=== PATIENT | female | born 1980 | race Caucasian/White ===

== ENCOUNTER 2019-02-02 09:08 | Emergency (ER) | payer OTHER ==
--- OUTSIDE RECORDS SUMMARY | 2019-02-02 09:10 | XMS REPORT | Summary of Care ---
:1980 Author Organization [facility] [[email or web address] - [facility] Address [address] [place] [id number] Care Team Providers Name Role Phone Faculty, Marco Jessica m Unavailable Unavailable Seda Mann Primary Care Provider Reason for Visit Reason Comments Shingles Auth/Cert Status Reason Specialty Diagnoses / Referred By Referred To Procedures Contact Contact Emergency Medicine Diagnoses [facility]ING[facility] Emergency Dept [address] [place] [address] Encounter Details Date Type Department Care Team Description 10/23/2018 Emergency ADC-Emergency Bar Christine MD Herpes zoster without Department [address] [place] [address] complication (Primary [address] Dx) [place] [address] [place], [place] [id number] Allergies No Known Allergiesdocumented as of this encounter (statuses as of 10/23/2018) Medications Medication Sig Dispensed Refills Start Date End Date Status HYDROcodone-acetaminop Take 1 tablet 0 Active hen (NORCO) 10-325 mg by mouth 2 tablet (two) times daily. HYDROcodone-acetaminop Take 1 tablet 30 tablet 0 07/08/2016 Active hen 10-325 mg tablet by mouth every 6 (six) hours as needed for Pain (scale 7-10). HYDROcodone-acetaminop Take 1 tablet 40 tablet 0 07/18/2016 Active hen 5-325 mg tablet by mouth every 4 (four) hours as needed for Pain (scale 4-6). cyclobenzaprine 5 mg Take 1 tablet 30 tablet 0 10/28/2016 Active tablet by mouth 3 (three) times daily. traMADOL (ULTRAM) 50 Take 1 tablet 20 tablet 0 10/28/2016 Active mg tablet by mouth every 6 (six) hours as needed for Pain (scale 4-6). traMADOL (ULTRAM) 50 Take 1 tablet 20 tablet 0 10/28/2016 Active mg tablet by mouth every 6 (six) hours as needed for Pain (scale 4-6). cyclobenzaprine 5 mg Take 1 tablet 30 tablet 0 10/28/2016 Active tablet by mouth 3 (three) times daily. gabapentin 300 mg Take 1,200 mg 0 Active capsule by mouth 3 (three) times daily. traZODONE 100 mg Take 100 mg by 0 Active tablet mouth at bedtime. acyclovir 200 mg Take 4 capsules 140 capsule 0 10/23/2018 Active capsuleIndications: by mouth 5 Herpes zoster without (five) times complication daily. predniSONE 20 mg Take 3 tablets 15 tablet 0 10/23/2018 10/28/2018 Active tabletIndications: by mouth every Herpes zoster without morning for 5 complication days. documented as of this encounter (statuses as of 10/23/2018) Active Problems Problem Noted Date Wound dehiscence, 07/13/2016 Overview: Fascial dehiscence Bowel obstruction 07/12/2016 Incisional hernia with obstruction 07/12/2016 Chronic anemia 07/12/2016 SBO (small bowel obstruction) 07/12/2016 S/P emergency hysterectomy 07/06/2016 hemorrhage, delivered 07/06/2016 Intraoperative bladder injury 07/06/2016 2016 Morbid obesity with body mass index of 40.0-49.9 2016 Morbid obesity with body mass index of 50 or higher 2016 Hemorrhoids during in third trimester 07/01/2016 IUGR (intrauterine growth retardation) affecting mother, third trimester, not applicable or unspecified fetus Overview: Needs weekly US DUGLAS and doppler. Hypertension in , pre-existing, antepartum, third trimester 2016 Two vessel umbilical cord, antepartum, single gestation 05/10/2016 Subchorionic hematoma in third trimester 05/10/2016 Supervision of high risk , antepartum, second trimester 01/13/2016 Tobacco use affecting in first trimester, antepartum 01/13/2016 Obesity in , antepartum, first trimester 01/13/2016 Anemia of mother in , antepartum 01/13/2016 History of 10/04/2013 Overview: X2;Last surgical c/s note on 11/2013: An inverted T hysterotomy was made with a #10 scalpel and extended with care being taken to avoid injury to the fetus. (IF PATIENT BECOMES AGAIN SHE SHOULD NOT LABOR, A REPEAT SHOULD BE SCHEDULED FOR 37 WEEKS) 04/07/16. Pt desires chyst due to h/o menometrorrhagia and bleeding in her pregnancies. D/W DR. Mahmood and is approved. Will schedule for 07/05/16 at 37 weeks with Timoteo and Josh. Degenerative arthritis 04/25/2013 documented as of this encounter (statuses as of 10/23/2018) Resolved Problems Problem Noted Date Resolved Date Vaginal bleeding in patient at less than 20 weeks 01/13/20162016 gestation History of hypertension 01/13/2016 07/01/2016 delivery delivered 11/23/2013 01/13/2016 Supervision of other high-risk 10/04/2013 01/13/2016 Overview: ICD10 Diagnosis Term Residential [employer] Utility Vaginal bleeding before 22 weeks gestation 05/24/2013 11/23/2013 Overview: [place] [facility] [place] [id number]. 05/23/13 ER records requested documented as of this encounter (statuses as of 10/23/2018) Immunizations Name Administration Dates Next Due Td 07/08/2008 Tdap 04/29/2016 documented as of this encounter Social History Tobacco Use Types Packs/Day Years Used Date Never Smoker Smokeless Tobacco: Never Used Alcohol Use Drinks/Week oz/Week Comments No Sex Assigned at Date Recorded Not on file Job Start Date Occupation Industry Not on file Not on file Not on file Travel History Travel Start Travel End No recent travel history available. documented as of this encounter Last Filed Vital Signs Vital Sign Reading Time Taken Comments Blood Pressure 126/87 10/23/2018 8:00 PM CDT Pulse 65 10/23/2018 8:00 PM CDT Temperature 36.7 C (98.1 F) 10/23/2018 6:21 PM CDT Respiratory Rate 20 10/23/2018 8:00 PM CDT Oxygen Saturation 100% 10/23/2018 8:00 PM CDT Inhaled Oxygen Concentration - - Weight 102.1 kg (225 lb) 10/23/2018 6:21 PM CDT Height 175.3 cm (5' 9") 10/23/2018 6:21 PM CDT Body Mass Index 33.23 10/23/2018 6:21 PM CDT documented in this encounter Discharge Instructions InstructionsBar Christine MD - 10/23/2018 RETURN FOR ANY QUESTIONS OR CONCERNS Today you were seen by Bar Christine Jr., MD You were seen today for Chief Complaint Patient presents with Shingles Your ER diagnosis was ICD-10-CM ICD-9-CM 1. Herpes zoster without complication B02.9 053.9 NO LIFE-THREATENING FINDINGS ON TODAY'S EXAM. YOUR PRESCRIPTIONS : Check out [employer] for medication discounts Medication List ASK your doctor about these medications * cyclobenzaprine 5 mg tablet Commonly known as: FLEXERIL Take 1 tablet by mouth 3 (three) times daily. * cyclobenzaprine 5 mg tablet Commonly known as: FLEXERIL Take 1 tablet by mouth 3 (three) times daily. gabapentin 300 mg capsule Commonly known as: NEURONTIN * NORCO 10-325 mg tablet Generic drug: HYDROcodone-acetaminophen * HYDROcodone-acetaminophen 10-325 mg tablet Commonly known as: NORCO Take 1 tablet by mouth every 6 (six) hours as needed for Pain (scale 7-10). * HYDROcodone-acetaminophen 5-325 mg tablet Commonly known as: NORCO 5 Take 1 tablet by mouth every 4 (four) hours as needed for Pain (scale 4-6). * traMADol 50 mg tablet Commonly known as: ULTRAM Take 1 tablet by mouth every 6 (six) hours as needed for Pain (scale 4-6). * traMADol 50 mg tablet Commonly known as: ULTRAM Take 1 tablet by mouth every 6 (six) hours as needed for Pain (scale 4-6). traZODone 100 mg tablet Commonly known as: DESYREL * This list has 7 medication(s) that are the same as other medications prescribed for you. Read thedirections carefully, and ask your doctor or other care provider to review them with you. ER precautions and follow up : 1. Return to ER if your symptoms should worsen or fail to improve within 72 hours. 2. The care provided in the emergency room was for acute problems only. 3. You should follow up with your primary care provider within 72 hours. 4. Fill and take all your medications as prescribed. 5. Make sure you are staying adequately hydrated. Busque attencion immediatamente si usted tiene los sitomas sigue, vuelve peor o si hay sitomas nuevas o para cualquiera preoccupacion incluyendo dolor del pecho , falta aire, se siente debile, mas fievre, mas dolor, nausea, vomitando, sangrando que no es normal, confusion, baja or pierdas conciencia. MAY FOLLOW-UP WITH A PROVIDER OF YOUR CHOICE, SUCH : 1. A PHYSICIAN OF YOUR CHOICE 2. [facility], . LOCATIONS IN [facility] 3. [facility], [address] [place] [address]; OR, IF YOU WISH TO FOLLOW-UP WITHIN THE [facility] [[email or web address], MAY TRY THESE OPTIONS (CLINIC APPOINTMENTS AVAILABLE ON URIN-DM-QGAK BASIS): 1. SCHEDULE AN APPOINTMENT ONLINE AT [email or web address] 2. OR CALL THE [facility] [[email or web address]] ACCESS CENTER AT OR 3. OR CALL YOUR [facility] [[email or web address]] PHYSICIAN'S OFFICE DIRECTLY IF YOU ARE ALREADY AN ESTABLISHED [facility] [[email or web address] PATIENT[facility] RETURN TO WORK / SCHOOL EXCUSE Hilda Martino WAS SEEN IN THE ER AND DISCHARGED 10/23/2018 TODAY, 7:54 PM & May return to Work / School / Incarceration on X with activity as tolerated indicated below. ___The following limitations apply until pt is seen by Physician and cleared to return to normal activity. _X_ Off for two days and return to activity as tolerated at work or school ___ No Sports ___ No work ___ Do not return until fever free for 24 hours. ___ No school BAR CHRISTINE Jr., MD [facility] EMERGENCY DEPRTMENT [address] [place] [address] [place] [id number] ### The patient may have been given Narcotic pain medications during their stay in the ED that may show up on a Drug Screen. The hospital discharge paper work will identify these medications. AttachmentsThe following attachments cannot be sent through Care Everywhere.Shingles (Herpes Zoster) (Honduran)documented in this encounter Plan of Treatment Health Maintenance Due Date Last Done Comments INFLUENZA VACCINE (#1) 2018 PAP SMEAR 07/02/2019 07/01/2016, 04/25/2013, 11/14/2005 DTaP,Tdap,and Td Vaccines (2 04/29/2026 04/29/2016, - Td) 07/08/2008 PNEUMOCOCCAL 0-64 YEARS Aged Out No longer eligible based COMBINED SERIES on patient's age to complete this topic documented as of this encounter Procedures Procedure Name Priority Date/Time Associated Diagnosis Comments ASSIGNMENT OF BENEFITS Routine 10/23/2018 6:17 PM CDT NOTICE OF PRIVACY Routine 10/23/2018 6:14 PM PRACTICES CDT CONSENT/REFUSAL FOR Routine 10/23/2018 6:13 PM DIAGNOSIS AND TREATMENT CDT documented in this encounter Results Not on filedocumented in this encounter Visit Diagnoses Diagnosis Herpes zoster without complication - Primary documented in this encounter Administered Medications Medication Order MAR Action Action Date Dose Rate Site FENTanyl PF (SUBLIMAZE Given 10/23/2018 8:01 PM 75 mcg Left Deltoid-IM (PF)) injection 75 mcg CDT 75 mcg, Intramuscular, ONCE, 1 dose, 10/23/18 at 2100, STAT documented in this encounter Insurance Payer Benefit Plan / Subscriber ID Effective Dates Phone Address Type Group [facility] xxxxxxxxx 2018-Present Medicaid COMM PLAN - MANAGED MEDICAID documented as of this encounter
--- OUTSIDE RECORDS SUMMARY | 2019-02-02 09:10 | XMS REPORT ---
:1980 Author [facility] Address [address] [place] [address] Care Team Providers Name Role Phone Unavailable Unavailable Unavailable Problems This patient has no known problems. Allergies, Adverse Reactions, Alerts This patient has no known allergies or adverse reactions. Medications This patient has no known medications.
[2019-02-02] MEDS ORDERED: CLINDAMYCIN 600MG/D5W 600 MG/50 ML BAG IV ONE (10:47)
[2019-02-02 11:15] LABS: Absolute Lymphocytes (CBC) 2.1 K/uL (0.7-4.9); Basophils % 0.6 % (0-1.3); Hematocrit 37.1 % (36.0-45.0); Lymphocytes % 37.2 % (15.3-44.8); RBC Red Blood Cell Count 4.41 M/uL (3.86-4.86)
[2019-02-02] MEDS ORDERED: KETOROLAC 30 MG/ML INJ ONE (11:23)
[2019-02-02 11:30] LABS: BUN Blood Urea Nitrogen 13 mg/dL (7-18); Bicarbonate 27 mmol/L (21-32); Glucose Level 115 mg/dL (74-106); Potassium 3.7 mmol/L (3.5-5.1); Sodium Level 140 mmol/L (136-145)
--- NOTE | 2019-02-02 11:48 | ER ---
Nurse's Notes [facility] Name: Hilda Martino Age: 38 yrs Sex: Female : 1980 Arrival Date: 02/02/2019 Time: 09:09 Bed 23 Private MD: Diagnosis: Cellulitis of right lower limb-foot Presentation: 02/02 09:24 Presenting complaint: Right foot pain and swelling x 4 days. Transition of care: hb patient was not received from another setting of care. Onset of symptoms was January 29, 2019. Risk Assessment: Do you want to hurt yourself or someone else? Patient reports no desire to harm self or others. Initial Sepsis Screen: Does the patient meet any 2 criteria? No. Patient's initial sepsis screen is negative. Does the patient have a suspected source of infection? No. Patient's initial sepsis screen is negative. Care prior to arrival: None. 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 - Social history:: Smoking status: Patient uses tobacco products, smokes one-half pack cigarettes per day. - Ebola Screening: : No symptoms or risks identified at this time. Screenin:02 Abuse screen: Denies threats or abuse. Denies injuries from another. Nutritional wh screening: No deficits noted. Tuberculosis screening: No symptoms or risk factors identified. Fall Risk None identified. Assessment: 10:02 General: Appears in no apparent distress. Behavior is calm, cooperative, appropriate wh for age. Pain: Complains of pain in dorsum of right foot Pain does not radiate. Pain currently is 5 out of 10 on a pain scale. Quality of pain is described as stinging, Pain began 1 day ago. Neuro: Level of Consciousness is awake, alert, obeys commands, Oriented to person, place, time, situation, Appropriate for age. Cardiovascular: Capillary refill < 3 seconds. Respiratory: Airway is patent Respiratory effort is even, unlabored, Respiratory pattern is regular, symmetrical. GI: Abdomen is flat, non-distended. : No signs and/or symptoms were reported regarding the genitourinary system. EENT: No signs and/or symptoms were reported regarding the EENT system. Derm: Redness in right foot. Musculoskeletal: Circulation, motion, and sensation intact. 11:43 Reassessment: Patient appears in no apparent distress at this time. No changes from previously documented assessment. Patient and/or family updated on plan of care and expected duration. Pain level reassessed. Patient is alert, oriented x 3, equal unlabored respirations, skin warm/dry/pink. Vital Signs: 09:25 BP 157 / 90; Pulse 86; Resp 16; Temp 98.8; Pulse Ox 100% on R/A; Weight 106.59 kg; hb Height 5 ft. 9 in. (175.26 cm); Pain 5/10; 10:04 BP 140 / 75; Pulse 67; Resp 18; Pulse Ox 98% on R/A; wh 11:43 BP 146 / 103; Pulse 72; Resp 18; Pulse Ox 100% on R/A; wh 09:25 Body Mass Index 34.70 (106.59 kg, 175.26 cm) ED Course: 09:09 Patient arrived in ED. am2 09:25 Triage completed. hb 09:25 Arm band placed on. hb 09:58 Dayanara Garcia is Primary Nurse. wh 09:58 Yuli Jenkins FNP-C is PHCP. kb 09:58 Cesar Da Silva MD is Attending Physician. kb 10:02 Patient has correct armband on for positive identification. Bed in low position. Call light in reach. Side rails up X 1. Pulse ox on. NIBP on. 10:30 Missed attempt(s): 22 gauge in right antecubital area. Bleeding controlled, band aid wh applied, catheter tip intact. 10:55 Initial lab(s) drawn, by nc, sent to lab. Inserted saline lock: 22 gauge in right hand, em1 using aseptic technique. Blood collected. 10:55 First set of blood cultures drawn. em1 12:00 No provider procedures requiring assistance completed. IV discontinued, intact, wh bleeding controlled, No redness/swelling at site. Administered Medications: 10:58 Drug: Clindamycin 600 mg Route: IVPB; Infused Over: 30 mins; Site: right hand; 11:44 Follow up: Response: No adverse reaction; IV Status: Completed infusion 11:22 Drug: TORadol - Ketorolac 15 mg Route: IVP; Site: right hand; 11:44 Follow up: Response: No adverse reaction; Pain is decreased Outcome: 11:47 Discharge ordered by . apurva 12:00 Discharged to home ambulatory, with friend. 12:00 Condition: stable 12:00 Discharge instructions given to patient, Instructed on discharge instructions, follow up and referral plans. medication usage, POC CEllulitis Demonstrated understanding of instructions, follow-up care, medications, POC Prescriptions given X 1. 12:10 Patient left the ED. Signatures: Yuli Jenkins, SAMUEL-C CAMPGROUND MANAGER-Donte Garcia em1 Alexandrea Corley RN RN Pari Le am2 Dayanara Garcia Corrections: (The following items were deleted from the chart) 12:40 12:34 Patient left the ED. [facility]
--- NOTE | 2019-02-02 11:48 | EDPHYS ---
Physician Documentation [facility] Name: Hilda Martino Age: 38 yrs Sex: Female : 1980 Arrival Date: 02/02/2019 Time: 09:09 Bed 23 Private MD: ED Physician Cesar Da Silva HPI: 02/02 10:31 This 38 yrs old Female presents to ER via Ambulatory with complaints of Foot kb Pain. 10:31 The patient presents with cellulitis of the dorsum of right foot. Description: kb erythematous, swollen, warm. Onset: The symptoms/episode began/occurred 4 day(s) ago. Possible cause(s): unknown. Associated signs and symptoms: Pertinent positives: erythema, fever, swelling. Modifying factors: the symptoms are alleviated by nothing, the symptoms are aggravated by touching. Severity of symptoms: At their worst the symptoms were moderate, in the emergency department the symptoms are unchanged. The patient has not experienced similar symptoms in the past. The patient has not recently seen a physician. Pt reports she started with fever, then developed redness and swelling to foot. . 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 - Social history:: Smoking status: Patient uses tobacco products, smokes one-half pack cigarettes per day. - Ebola Screening: : No symptoms or risks identified at this time. ROS: 10:30 Constitutional: Negative for fever, chills, and weight loss, ENT: Negative for injury, kb pain, and discharge, Neck: Negative for injury, pain, and swelling, Cardiovascular: Negative for chest pain, palpitations, and edema, Respiratory: Negative for shortness of breath, cough, wheezing, and pleuritic chest pain, Abdomen/GI: Negative for abdominal pain, nausea, vomiting, diarrhea, and constipation, Back: Negative for injury and pain, Neuro: Negative for headache, weakness, numbness, tingling, and seizure. 10:30 MS/extremity: Positive for erythema, pain, swelling, tenderness. Exam: 10:30 Constitutional: This is a well developed, well nourished patient who is awake, alert, kb and in no acute distress. Head/Face: Normocephalic, atraumatic. Chest/axilla: Normal chest wall appearance and motion. Nontender with no deformity. No lesions are appreciated. Cardiovascular: Regular rate and rhythm with a normal S1 and S2. No gallops, murmurs, or rubs. Normal PMI, no JVD. No pulse deficits. Respiratory: Lungs have equal breath sounds bilaterally, clear to auscultation and percussion. No rales, rhonchi or wheezes noted. No increased work of breathing, no retractions or nasal flaring. Abdomen/GI: Soft, non-tender, with normal bowel sounds. No distension or tympany. No guarding or rebound. No evidence of tenderness throughout. MS/ Extremity: Pulses equal, no cyanosis. Neurovascular intact. Full, normal range of motion. Neuro: Awake and alert, GCS 15, oriented to person, place, time, and situation. Cranial nerves II-XII grossly intact. Motor strength 5/5 in all extremities. Sensory grossly intact. Cerebellar exam normal. Normal gait. 10:30 Skin: cellulitis, that is moderate, on the dorsum of right foot. Vital Signs: 09:25 BP 157 / 90; Pulse 86; Resp 16; Temp 98.8; Pulse Ox 100% on R/A; Weight 106.59 kg; hb Height 5 ft. 9 in. (175.26 cm); Pain 5/10; 10:04 BP 140 / 75; Pulse 67; Resp 18; Pulse Ox 98% on R/A; wh 11:43 BP 146 / 103; Pulse 72; Resp 18; Pulse Ox 100% on R/A; wh 09:25 Body Mass Index 34.70 (106.59 kg, 175.26 cm) hb MDM: 09:59 Patient medically screened. kb 10:29 Data reviewed: vital signs, nurses notes. Data interpreted: Pulse oximetry: on room air kb is 98 %. Interpretation: normal. 11:46 Counseling: I had a detailed discussion with the patient and/or guardian regarding: the kb historical points, exam findings, and any diagnostic results supporting the discharge/admit diagnosis, lab results, the need for outpatient follow up, a family practitioner, to return to the emergency department if symptoms worsen or persist or if there are any questions or concerns that arise at home. 11/29 10:12 Order name: CBC with Diff 02/02 10:12 Order name: Basic Metabolic Panel 02/02 10:12 Order name: Blood Culture Adult (2) 02/02 11:17 Order name: CBC with Automated Diff; Complete Time: 11:18 EDMS 02/02 11:30 Order name: Basic Metabolic Panel; Complete Time: 11:36 EDMS 02/02 10:12 Order name: IV Start; Complete Time: 10:54 kb Administered Medications: 10:58 Drug: Clindamycin 600 mg Route: IVPB; Infused Over: 30 mins; Site: right hand; 11:44 Follow up: Response: No adverse reaction; IV Status: Completed infusion 11:22 Drug: TORadol - Ketorolac 15 mg Route: IVP; Site: right hand; 11:44 Follow up: Response: No adverse reaction; Pain is decreased Disposition: 02/02/19 11:47 Discharged to Home. Impression: Cellulitis of right lower limb - foot. - Condition is Stable. - Discharge Instructions: Cellulitis, Adult, [id number]. - Prescriptions for Clindamycin HCl 300 mg Oral Capsule - take 1 capsule by ORAL route every 6 hours for 10 days; 40 capsule. - Medication Reconciliation Form, Thank You Letter, Antibiotic Education, Prescription Opioid Use form. - Follow up: Emergency Department; When: As needed; Reason: Worsening of condition. Follow up: Private Physician; When: 2 - 3 days; Reason: Recheck today's complaints, Continuance of care, Re-evaluation by your physician. Addendum: 02/05/2019 10:05 Co-signature as Attending Physician, Cesar Da Sivla MD I agree with the assessment and k dr plan of care. Signatures: Dispatcher [employer] EDMS Yuli Jenkins, HEAD SHIPPER-C HEAD SHIPPER-Ckb Cesar Da Silva MD MD [facility] Alexandrea Corley RN RN Dayanara Garcia Corrections: (The following items were deleted from the chart) 02/02 12:34 11:47 02/02/2019 11:47 Discharged to Home. Impression: Cellulitis of right lower limb - wh foot. Condition is Stable. Forms are Medication Reconciliation Form, Thank You Letter, Antibiotic Education, Prescription Opioid Use. Follow up: Emergency Department; When: As needed; Reason: Worsening of condition. Follow up: Private Physician; When: 2 - 3 days; Reason: Recheck today's complaints, Continuance of care, Re-evaluation by your physician. kb
[2019-02-02 18:52] VITALS: BP 146/103; O2SAT 100
[2019-02-02 18:55] VITALS: TEMP 98.2
== END 2019-02-02 12:34 | disposition home or self-care (01) ==
LOC: ER 09:08
DX: L03.115 Cellulitis of right lower limb (principal); F17.210 Nicotine dependence, cigarettes, uncomplicated
CPT/HCPCS: 36415; 80048; 85025; 87040; 96365; 96375; 99284

== ENCOUNTER 2019-02-12 15:28 | Emergency (ER) | payer OTHER ==
--- OUTSIDE RECORDS SUMMARY | 2019-02-12 15:31 | XMS REPORT ---
:1980 Author Organization [facility] Address [address] [place] [address] Care Team Providers Name Role Phone Unavailable Unavailable Unavailable Problems This patient has no known problems. Allergies, Adverse Reactions, Alerts This patient has no known allergies or adverse reactions. Medications This patient has no known medications.
[2019-02-12] MEDS ORDERED: hydrOXYzine HCL 25 MG TAB ONE (16:04)
--- NOTE | 2019-02-12 16:11 | EDPHYS ---
Physician Documentation [facility] Name: Hilda Martino Age: 38 yrs Sex: Female : 1980 Arrival Date: 02/12/2019 Time: 15:30 Bed 24 Private MD: ED Physician Ananda Galarza HPI: 02/12 16:34 This 38 yrs old Female presents to ER via Ambulatory with complaints of Blood snw Pressure Problem. 16:34 Onset: The symptoms/episode began/occurred 3 day(s) ago, and became persistent. snw Associated signs and symptoms: Pertinent positives: pressure in head, lightheadedness. Modifying factors: The patient symptoms are alleviated by in the past s/s alleviated by use of hydroxyzine. Pt has been in rehab x 3 weeks, she states this is her 4th or 5th time.. The patient has experienced similar episodes in the past. The patient has been recently seen by a physician: with different complaint(s), and apparently was diagnosed with cellulitis of right foot, improving with antibiotics. Historical: - Allergies: 15:56 No Known Allergies; ss - Home Meds: 15:56 gabapentin oral oral [Active]; Cephalexin Oral [Active]; ss - PMHx: 15:56 Hypertension; Degenerative disc disease; ss - PSHx: 15:56 Hysterectomy; Bladder; Hernia repair; ; Bowel resection; Tonsillectomy; ss - Immunization history:: Adult Immunizations up to date. - Social history:: Smoking status: Patient/guardian denies using tobacco. - Ebola Screening: : Patient denies exposure to infectious person Patient denies travel to an Ebola-affected area in the 21 days before illness onset. ROS: 16:27 Eyes: Negative for injury, pain, redness, and discharge, ENT: Negative for injury, snw pain, and discharge, Neck: Negative for injury, pain, and swelling, Cardiovascular: Negative for chest pain, palpitations, and edema, Respiratory: Negative for shortness of breath, cough, wheezing, and pleuritic chest pain, Abdomen/GI: Negative for abdominal pain, nausea, vomiting, diarrhea, and constipation, Back: Negative for injury and pain, : Negative for injury, bleeding, discharge, and swelling, MS/Extremity: Negative for injury and deformity, Skin: Negative for injury, rash, and discoloration, Neuro: Negative for headache, weakness, numbness, tingling, and seizure, occasional lightheadedness Psych: Negative for depression, anxiety, suicide ideation, homicidal ideation, and hallucinations. 16:27 Constitutional: Positive for blood pressure problems, full feeling in head. Exam: 16:27 Constitutional: This is a well developed, well nourished patient who is awake, alert, snw and in no acute distress. Head/Face: Normocephalic, atraumatic. Eyes: Pupils equal round and reactive to light, extra-ocular motions intact. Lids and lashes normal. Conjunctiva and sclera are non-icteric and not injected. Cornea within normal limits. Periorbital areas with no swelling, redness, or edema. ENT: Nares patent. No nasal discharge, no septal abnormalities noted. Tympanic membranes are normal and external auditory canals are clear. Oropharynx with no redness, swelling, or masses, exudates, or evidence of obstruction, uvula midline. Mucous membranes moist. Neck: Trachea midline, no thyromegaly or masses palpated, and no cervical lymphadenopathy. Supple, full range of motion without nuchal rigidity, or vertebral point tenderness. No Meningismus. Chest/axilla: Normal chest wall appearance and motion. Nontender with no deformity. No lesions are appreciated. Cardiovascular: Regular rate and rhythm with a normal S1 and S2. No gallops, murmurs, or rubs. Normal PMI, no JVD. No pulse deficits. Respiratory: Lungs have equal breath sounds bilaterally, clear to auscultation and percussion. No rales, rhonchi or wheezes noted. No increased work of breathing, no retractions or nasal flaring. Abdomen/GI: Soft, non-tender, with normal bowel sounds. No distension or tympany. No guarding or rebound. No evidence of tenderness throughout. Back: No spinal tenderness. No costovertebral tenderness. Full range of motion. Skin: Warm, dry with normal turgor. Normal color with no rashes, no lesions, and no evidence of cellulitis. Pt taking abx for cellulitis to right foot, no evidence of cellulitis now, left toes with obvious fungal infection, broken skin between and under toes MS/ Extremity: Pulses equal, no cyanosis. Neurovascular intact. Full, normal range of motion. Neuro: Awake and alert, GCS 15, oriented to person, place, time, and situation. Cranial nerves II-XII grossly intact. Motor strength 5/5 in all extremities. Sensory grossly intact. Cerebellar exam normal. Normal gait. Psych: Awake, alert, with orientation to person, place and time. Behavior, mood, and affect are within normal limits. Vital Signs: 15:56 BP 165 / 94; Pulse 76; Resp 16; Pulse Ox 99% on R/A; Weight 108.86 kg; Height 5 ft. 9 ss in. (175.26 cm); 16:27 BP 156 / 88; Pulse 70; Resp 17; Pulse Ox 100% on R/A; rv 15:56 Body Mass Index 35.44 (108.86 kg, 175.26 cm) ss MDM: 15:45 Patient medically screened. snw Administered Medications: 16:04 Drug: hydrOXYzine 50 mg Route: PO; rv 16:29 Follow up: Response: Blood pressure is lowered rv Disposition: 16:38 Co-signature as Attending Physician, Ananda Galarza MD. rn Disposition: 02/12/19 16:10 Discharged to Home. Impression: Patient's intentional underdosing of medication regimen due to financial hardship, Tinea pedis. - Condition is Stable. - Discharge Instructions: Athlete's Foot, Hypertension, Rehydration, Adult. - Prescriptions for Lotrimin AF 1 % Topical cream - apply 1 application by TOPICAL route 2 times per day; 1 tube. Hydroxyzine HCl 50 mg Oral Tablet - take 1 tablet by ORAL route At bedtime As needed; 20 tablet. - Medication Reconciliation Form, Thank You Letter, Antibiotic Education, Prescription Opioid Use form. - Follow up: Emergency Department; When: As needed; Reason: Worsening of condition. Follow up: Private Physician; When: 10 - 14 days; Reason: Recheck today's complaints, Continuance of care, Re-evaluation by your physician. - Notes: Please cleanse foot daily, allow to dry completely. Apply spray antiperspirant to area. Allow to dry completely prior to placing socks or shoes Signatures: Shelia Valdez, ALLIED HEALTH TEACHER-C ALLIED HEALTH TEACHER-Csnw Ananda Galarza MD MD rn Smirch, Shelby, RN RN ss Irineo Lamar RN RN rv Corrections: (The following items were deleted from the chart) 16:15 16:10 02/12/2019 16:10 Discharged to Home. Impression: Patient's intentional snw underdosing of medication regimen due to financial hardship. Condition is Stable. Forms are Medication Reconciliation Form, Thank You Letter, Antibiotic Education, Prescription Opioid Use. Follow up: Emergency Department; When: As needed; Reason: Worsening of condition. Follow up: Private Physician; When: 10 - 14 days; Reason: Recheck today's complaints, Continuance of care, Re-evaluation by your physician. snw 16:28 16:15 02/12/2019 16:10 Discharged to Home. Impression: Patient's intentional rv underdosing of medication regimen due to financial hardship; Tinea pedis. Condition is Stable. Discharge Instructions: Hypertension, Tinea Versicolor, Rehydration, Adult. Prescriptions for Lotrimin AF 1 % Topical cream - apply 1 application by TOPICAL route 2 times per day; 1 tube, Hydroxyzine HCl 50 mg Oral Tablet - take 1 tablet by ORAL route At bedtime As needed; 20 tablet. and Forms are Medication Reconciliation Form, Thank You Letter, Antibiotic Education, Prescription Opioid Use. Follow up: Emergency Department; When: As needed; Reason: Worsening of condition. Follow up: Private Physician; When: 10 - 14 days; Reason: Recheck today's complaints, Continuance of care, Re-evaluation by your physician. snw
--- NOTE | 2019-02-12 16:11 | ER ---
Nurse's Notes [facility] Name: Hilda Martino Age: 38 yrs Sex: Female : 1980 Arrival Date: 02/12/2019 Time: 15:30 Bed 24 Private MD: Diagnosis: Patient's intentional underdosing of medication regimen due to financial hardship;Tinea pedis Presentation: 02/12 15:52 Presenting complaint: Patient states: High blood pressure (systolic 170's) x 3 days. Pt ss c/o headache/ ear pressure. Transition of care: patient was not received from another setting of care. Onset of symptoms was February 10, 2019. Risk Assessment: Do you want to hurt yourself or someone else? Patient reports no desire to harm self or others. Initial Sepsis Screen: Does the patient meet any 2 criteria? No. Patient's initial sepsis screen is negative. Does the patient have a suspected source of infection? No. Patient's initial sepsis screen is negative. Care prior to arrival: None. 15:52 Method Of Arrival: Ambulatory ss 15:52 Acuity: JEFF 4 ss Historical: - Allergies: 15:56 No Known Allergies; ss - Home Meds: 15:56 gabapentin oral oral [Active]; Cephalexin Oral [Active]; ss - PMHx: 15:56 Hypertension; Degenerative disc disease; ss - PSHx: 15:56 Hysterectomy; Bladder; Hernia repair; ; Bowel resection; Tonsillectomy; ss - Immunization history:: Adult Immunizations up to date. - Social history:: Smoking status: Patient/guardian denies using tobacco. - Ebola Screening: : Patient denies exposure to infectious person Patient denies travel to an Ebola-affected area in the 21 days before illness onset. Screenin:26 Abuse screen: Denies threats or abuse. Denies injuries from another. Nutritional rv screening: No deficits noted. Tuberculosis screening: No symptoms or risk factors identified. Fall Risk None identified. Assessment: 16:25 General: Appears in no apparent distress. comfortable, Behavior is calm, cooperative. rv Pain: Denies pain. Neuro: Level of Consciousness is obeys commands, Oriented to person, place, time, situation. Cardiovascular: Patient's skin is warm and dry. Respiratory: Airway is patent. GI: No signs and/or symptoms were reported involving the gastrointestinal system. : No signs and/or symptoms were reported regarding the genitourinary system. EENT: No signs and/or symptoms were reported regarding the EENT system. Derm: Skin is intact. Musculoskeletal: No signs and/or symptoms reported regarding the musculoskeletal system. Vital Signs: 15:56 BP 165 / 94; Pulse 76; Resp 16; Pulse Ox 99% on R/A; Weight 108.86 kg; Height 5 ft. 9 ss in. (175.26 cm); 16:27 BP 156 / 88; Pulse 70; Resp 17; Pulse Ox 100% on R/A; rv 15:56 Body Mass Index 35.44 (108.86 kg, 175.26 cm) ED Course: 15:30 Patient arrived in ED. as 15:45 She[facility]C [facility] snw 15:45 Ananda Galarza MD is Attending Physician. snw 15:54 Triage completed. ss 15:56 Arm band placed on right wrist. ss 16:01 Irineo Lamar, LISA is Primary Nurse. rv 16:26 Patient has correct armband on for positive identification. Bed in low position. Call rv light in reach. Side rails up X 1. Pulse ox on. NIBP on. 16:27 No provider procedures requiring assistance completed. Patient did not have IV access rv during this emergency room visit. Administered Medications: 16:04 Drug: hydrOXYzine 50 mg Route: PO; rv 16:29 Follow up: Response: Blood pressure is lowered rv Outcome: 16:10 Discharge ordered by . snw 16:27 Discharged to home ambulatory. rv 16:27 Condition: good 16:27 Discharge instructions given to patient, Instructed on discharge instructions, follow up and referral plans. medication usage, Demonstrated understanding of instructions, follow-up care, medications, Prescriptions given X 2. 16:28 Patient left the ED. rv Signatures: Shelia Valdez FNP-C FNP-Jessa Velasco Shelby, RN RN Irineo Lamar, LISA RN rv
[2019-02-12 16:52] VITALS: BP 156/88; O2SAT 100
== END 2019-02-12 16:28 | disposition home or self-care (01) ==
LOC: ER 15:28
DX: I10 Essential (primary) hypertension (principal); T50.906A Underdosing of unspecified drugs, medicaments and biological substances, initial encounter; B35.3 Tinea pedis; Z91.120 Patient's intentional underdosing of medication regimen due to financial hardship; Y92.9 Unspecified place or not applicable
CPT/HCPCS: 99283